=== PATIENT | female | born 1990 | race Caucasian/White ===

== ENCOUNTER 2018-04-22 11:06 | Emergency (ER) | payer BC ==
[2018-04-22 12:05] VITALS: BP 127/74
--- NOTE | 2018-04-22 12:32 | UC ---
Complaint Female HPI - HPI Summary HPI Summary: Patient states that just over a week she's been experiencing discomfort with urination. She describes it as burning at the end of urination and "almost like vaginal spasms". Denies any associated risk or concern for vaginal infection as well as vaginal discharge or lesions. She has no associated fever , vaginal discharge, frequency or urgency with urination but she does have hesitancy with urination. - History Of Current Complaint Chief Complaint: UCGU Stated Complaint: URINARY Time Seen by Provider: 04/22/18 12:17 Hx Obtained From: Patient Hx Last Menstrual Period: 04/16/18 Onset/Duration: Gradual Onset Pain Intensity: 0 Alleviating Factor(s): Nothing Associated Signs And Symptoms: Positive: Back Pain - LOW BACK. Negative: Fever - Allergies/Home Medications Allergies/Adverse Reactions: Allergies Allergy/AdvReac Type Severity Reaction Status Date / Time Iodinated Contrast- Oral and Allergy "It shuts Verified 04/22/18 12:01 IV Dye my kidney's down." PMH/Surg Hx/FS Hx/Imm Hx - Additional Past Medical History Additional PMH: uti - Surgical History Surgical History: Yes Surgery Procedure, Year, and Place: Tubal Ligation, 2016, [place]; Varicose Veins, 2010, [place]; Tonsillectomy, 1996, [place] - Family History Known Family History: Positive: None - Social History Lives: With Family Alcohol Use: Occasionally Substance Use Type: None Smoking Status (MU): Heavy Every Day Tobacco Smoker Type: Cigarettes Amount Used/How Often: > 1/2 PPD Length of Time of Smoking/Using Tobacco: Since Age 17 Have You Smoked in the Last Year: Yes Household Exposure Type: Cigarettes - Immunization History Vaccination Up to Date: Yes Review of Systems Constitutional: Negative Skin: Negative Eyes: Negative ENT: Negative Respiratory: Negative Cardiovascular: Negative Gastrointestinal: Negative Genitourinary: Dysuria, Vaginal/Penile Pain Motor: Negative Neurovascular: Negative Musculoskeletal: Negative Neurological: Negative Psychological: Negative Is Patient Immunocompromised?: No All Other Systems Reviewed And Are Negative: Yes Physical Exam Triage Information Reviewed: Yes Appearance: Well-Appearing Vital Signs: Initial Vital Signs Temp 98.2 F 04/22/18 11:57 Pulse 76 04/22/18 11:57 Resp 16 04/22/18 11:57 BP 127/74 04/22/18 11:57 Pulse Ox 100 04/22/18 11:57 Vital Signs Reviewed: Yes Eyes: Positive: Conjunctiva Clear ENT: Positive: Normal ENT inspection Neck: Positive: Supple, Nontender, No Lymphadenopathy Respiratory: Positive: Lungs clear, Normal breath sounds Cardiovascular: Positive: RRR, No Murmur Abdomen Description: Positive: Nontender, No Organomegaly, Soft. Negative: Bruit, CVA Tenderness (R), CVA Tenderness (L), Distended, Guarding Bowel Sounds: Positive: Present Pelvic Exam: Positive: Other - DECLINED Musculoskeletal: Positive: ROM Intact Neurological: Positive: Alert Psychological: Positive: Age Appropriate Behavior Skin Exam: Normal Diagnostics - Laboratory Diagnostic Studies Completed/Ordered: HCG=NEG. U/A=3+LEUKS, 1+ BLOOD Complaint Female Dx - Course Course Of Treatment: Patient is nontoxic. No acute abdomen. Denies risk or concern for pelvic infection and declined pelvic exam. We'll treat for presumptive UTI but need for close follow-up and recheck stressed. List of other possible causes of her discomfort and discussed with patient as well. - Differential Dx/Diagnosis Differential Diagnosis/HQI/PQRI: Urinary Tract Infection, Other - Vaginitis. . Vaginal spasm. Interstitial cystitis. Provider Diagnoses: Dysuria Discharge - Sign-Out/Discharge Documenting (check all that apply): Patient Departure All imaging exams completed and their final reports reviewed: No Studies - Discharge Plan Condition: Stable Disposition: HOME Prescriptions: Nitrofurantoin Monohyd/M-Cryst [Macrobid 100 mg Capsule] 100 mg PO BID 5 Days # 10 cap Phenazopyridine 200 mg (NF) [Pyridium 200 MG tab *] 200 mg PO TID #6 tab Patient Education Materials: Dysuria (ED) Referrals: GRIFFIN Lal [Medical Doctor] - 5 Days - Billing Disposition and Condition Condition: STABLE Disposition: Home
== END 2018-04-22 12:57 | disposition home or self-care (01) ==
LOC: UCCORT 11:06
DX: R30.0 Dysuria (principal); F17.210 Nicotine dependence, cigarettes, uncomplicated; Z91.041 Radiographic dye allergy status
CPT/HCPCS: 81003; 84702; 87077; 87086; 99202; G0463